=== PATIENT | female | born 1980 | race Two or more races ===

== ENCOUNTER 2017-04-13 23:08 | Emergency (ER) | payer MEDICAID, OTHER ==
[~2017-04-13] VITALS: Ht 170.2 cm; Wt 108.0 kg
[~2017-04-13 23:08] MED LIST: PHEN-329 PO; TAB-TAB PO
[2017-04-13 23:23] VITALS: BP 110/81; PULSE 75; RESP 18; TEMP 98.2; O2SAT 99
[2017-04-14] MEDS ORDERED: SIMV20TA PO (00:02)
[2017-04-14] MEDS ORDERED: LEVO50TA4 PO (00:02)
[2017-04-14 00:03] VITALS: BP 110/87; PULSE 75; RESP 18; TEMP 98.2; O2SAT 99
[2017-04-14] MEDS ORDERED: SODIUM CHLORIDE 0.9% FLUSH 10 ML FLUSH IV FLUSH PRN ×2 (00:15→02:45)
--- NOTE | 2017-04-14 00:48 | PD ---
HPI Chief Complaint: Abdominal Pain Time Seen by Provider: 00:12 Travel History International Travel<30 days: No Contact w/Intl Traveler<30days: No Traveled to known affect area: No History of Present Illness HPI 36 year-old female presents to the emergency department for complaint of abdominal bloating and right upper quadrant abdominal pain. Patient is recently been started on simvastatin for dyslipidemia and they with her oxygen for hypothyroidism. Patient states that she is status post cholecystectomy 12 years ago and has had no issues with gallbladder or post gallbladder GI complaints. Patient denies any weight gain but states she's been having difficulty losing weight. Patient denies any flank pain dysuria frequency urgency hematuria vaginal discharge or abnormal vaginal bleeding. Last menses was one week ago and normal for her; patient denies . Patient's had no fever or chills. Patient's had nausea no vomiting. Patient's had normal bowel movements without diarrhea constipation melena hematochezia. Patient denies any injury or fall. Patient denies chest pain or shortness of breath. Patient's had no recent respiratory illness. Patient rates pain as 7/10 in intensity. [facility] Past Medical History Narrative Medical Dyslipidemia hypothyroidism cholecystectomy no tobacco use; nursing notes reviewed High Cholesterol: Yes Diminished Hearing: No Immunizations Current: No Thyroid Disease: Yes (HYPOTHYROIDISM) Tetanus Vaccination: Unknown Influenza Vaccination: No ?: Not LMP: 03/30/17 : 1 Para: 1 Miscarriage: 0 : 0 Past Surgical History Cholecystectomy: Yes Oral Surgery: Yes (WISDOM) Social History Alcohol Use: No Tobacco Use: No Substance Use: No Allergies-Medications (Allergen,Severity, Reaction): Coded Allergies: Contrast Media (Verified Allergy, Intermediate, 04/14/17) Reported Meds & Prescriptions Reported Meds & Active Scripts Active Zofran Odt (Ondansetron Odt) 4 Mg Tab 4 Mg SL Q6HR PRN Epipen 2-Bon Inj (Epinephrine) 0.3 Mg/0.3 Ml Pfpen 0.3 Mg IM ONCE PRN Medrol Dosepak (Methylprednisolone) 4 Mg Dspk 4 Mg PO DIRECTED Per Pharmacist direction Reported Simvastatin 20 Mg Tab 20 Mg PO DAILY Levothyroxine (Levothyroxine Sodium) 50 Mcg Tab 50 Mcg PO DAILY Review of Systems Except as stated in HPI: all other systems reviewed are Neg General / Constitutional: No: Fever, Chills, Weight Loss Eyes: No: Visual changes HENT: No: Headaches, Sore Throat, Congestion Cardiovascular: No: Chest Pain or Discomfort, Palpitations, Diaphoresis Respiratory: No: Shortness of Breath, Pleuritic Pain Gastrointestinal: Positive: Nausea, Abdominal Pain, No: Vomiting, Diarrhea, Hematemesis, Hematochezia, Constipation, Loss of Appetite Genitourinary: No: Urgency, Frequency, Dysuria, Pelvic Pain, Flank Pain Musculoskeletal: No: Myalgias, Arthralgias Skin: No Rash Neurologic: No: Weakness Psychiatric: No: Anxiety Endocrine: No: Polyuria Hematologic/Lymphatic: No: Lymph Node Enlargement Physical Exam Narrative GENERAL: Well-developed well-nourished female in no acute distress no respiratory distress SKIN: Warm and dry. HEAD: Normocephalic. EYES: No scleral icterus. No injection or drainage. NECK: Supple, trachea midline. No JVD or lymphadenopathy. CARDIOVASCULAR: Regular rate and rhythm without murmurs, gallops, or rubs. RESPIRATORY: Breath sounds equal bilaterally. No accessory muscle use. GASTROINTESTINAL: Abdomen soft, epigastric and right upper quadrant tenderness to palpation without guarding or rebound; no clinical Rodriguez sign, nondistended. MUSCULOSKELETAL: No cyanosis, or edema. BACK: Nontender without obvious deformity. No CVA tenderness. Data Data Last Documented VS Vital Signs Date Time Temp Pulse Resp B/P Pulse Ox O2 Delivery O2 Flow Rate FiO2 04/14/17 03:06 62 16 111/69 99 Room Air 04/14/17 00:03 98.2 Orders Complete Blood Count With Diff (04/14/17 00:12) Comprehensive Metabolic Panel (04/14/17 00:12) Lipase (04/14/17 00:12) Lactic Acid (04/14/17 00:12) Urinalysis - C+S If Indicated (04/14/17 00:12) Ct Abd/Pel W Iv Contrast(Rout) (04/14/17 00:12) Iv Access Insert/Monitor (04/14/17 00:12) Ecg Monitoring (04/14/17 00:12) Oximetry (04/14/17 00:12) Sodium Chloride 0.9% Flush (Ns Flush) (04/14/17 00:15) Electrocardiogram (04/14/17 00:12) Ed Urine Pregnancytest Poc (04/14/17 00:12) Magnesium (Mg) (04/14/17 00:12) Ckmb (Isoenzyme) Profile (04/14/17 00:12) Troponin I (04/14/17 00:12) CKMB (04/14/17 01:40) CKMB% (04/14/17 01:40) Ondansetron Inj (Zofran Inj) (04/14/17 02:15) Hydromorphone Pf Inj (Dilaudid Pf Inj) (04/14/17 02:15) Sodium Chlor 0.9% 1000 Ml Inj (Ns 1000 M (04/14/17 02:15) Diphenhydramine Inj (Benadryl Inj) (04/14/17 02:45) Methylprednisolone So Succ Inj (Solumedr (04/14/17 02:45) Ecg Monitoring (04/14/17 02:43) Iv Access Insert/Monitor (04/14/17 02:43) Oximetry (04/14/17 02:43) Famotidine Inj (Pepcid Inj) (04/14/17 02:45) Sodium Chloride 0.9% Flush (Ns Flush) (04/14/17 02:45) Epinephrine (1:1000) Inj (Adrenalin (1:1 (04/14/17 02:45) Sodium Chlor 0.9% 1000 Ml Inj (Ns 1000 M (04/14/17 02:45) Iohexol 350 Inj (Omnipaque 350 Inj) (04/14/17 02:46) Labs Laboratory Tests Test 04/14/17 04/14/17 01:00 01:40 White Blood Count 7.6 TH/MM3 Red Blood Count 4.23 MIL/MM3 Hemoglobin 12.4 GM/DL Hematocrit 37.4 % Mean Corpuscular Volume 88.3 FL Mean Corpuscular Hemoglobin 29.4 PG Mean Corpuscular Hemoglobin 33.3 % Concent Red Cell Distribution Width 15.4 % Platelet Count 226 TH/MM3 Mean Platelet Volume 8.4 FL Neutrophils (%) (Auto) 61.3 % Lymphocytes (%) (Auto) 29.9 % Monocytes (%) (Auto) 6.7 % Eosinophils (%) (Auto) 1.2 % Basophils (%) (Auto) 0.9 % Neutrophils # (Auto) 4.6 TH/MM3 Lymphocytes # (Auto) 2.3 TH/MM3 Monocytes # (Auto) 0.5 TH/MM3 Eosinophils # (Auto) 0.1 TH/MM3 Basophils # (Auto) 0.1 TH/MM3 CBC Comment DIFF FINAL Differential Comment Urine Color YELLOW Urine Turbidity CLEAR Urine pH 6.0 Urine Specific [place] 1.009 Urine Protein NEG mg/dL Urine Glucose (UA) NEG mg/dL Urine Ketones NEG mg/dL Urine Occult Blood SMALL Urine Nitrite NEG Urine Bilirubin NEG Urine Leukocyte Esterase NEG Urine RBC 3-5 /hpf Urine WBC 0-2 /hpf Urine Squamous Epithelial 0-5 /hpf Cells Urine Bacteria NONE /hpf Microscopic Urinalysis Comment CULT NOT INDICATED Lactic Acid Level 0.9 mmol/L Sodium Level 141 MEQ/L Potassium Level 3.5 MEQ/L Chloride Level 107 MEQ/L Carbon Dioxide Level 26.4 MEQ/L Anion Gap 8 MEQ/L Blood Urea Nitrogen 11 MG/DL Creatinine 1.00 MG/DL Estimat Glomerular Filtration 62 ML/MIN Rate Random Glucose 94 MG/DL Calcium Level 8.6 MG/DL Magnesium Level 2.2 MG/DL Total Bilirubin 0.5 MG/DL Aspartate Amino Transf 36 U/L (AST/SGOT) Alanine Aminotransferase 47 U/L (ALT/SGPT) Alkaline Phosphatase 78 U/L Total Creatine Kinase 537 U/L Creatine Kinase MB 4.2 NG/ML Creatine Kinase MB % 0.8 % Troponin I LESS THAN 0.02 NG/ML Total Protein 7.7 GM/DL Albumin 3.9 GM/DL Lipase 309 U/L [facility] Medical Decision Making Medical Screen Exam Complete: Yes Emergency Medical Condition: Yes Medical Record Reviewed: Yes Interpretation(s) EKG normal sinus rhythm rate 64 age-indeterminate QRS inferiorly no acute ST elevation or injury pattern change noted [id number] hCG: Negative Lactic acid: 0.9, not elevated Troponin I less than 0.02, not elevated CK total 537, elevated CK-MB and MB percent pending Urinalysis: Normal range CT abd/pel with IV contrast: FINDINGS: Mild hepatic steatosis. Cholecystectomy clips are noted. The spleen, pancreas, adrenal glands, bilateral kidneys are unremarkable. There is a punctate nonobstructing left upper pole renal calculus. Appendix is normal. The urinary bladder, uterus and adnexa are unremarkable. No evidence of bowel obstruction. Stomach, small and large bowel are normal. No adenopathy or aneurysm. Lung bases are clear. Osseous structures are intact. CONCLUSION: 1. Mild hepatic steatosis. 2. Nonobstructing left renal calculus. 3. No inflammatory changes are identified in the abdomen or pelvis. Brandon Dubose MD on April 14, 2017 at 2:55 Board Certified Radiologist. This report was verified electronically. Differential Diagnosis Abdominal pain, abdominal distention, choledocholithiasis, pancreatitis, gastritis, bowel obstruction, renal colic, ascites, hepatitis Narrative Course IV access obtained specimens collected and sent for resulting EKG performed which reveals no acute ST segment elevation or injury pattern: Patient offered pain medication but declines at this time CBC is automated differential values in normal range; [id number] hCG negative At 2 AM patient now requesting pain medication that she had previously declined ; at this time patient will be offered Zofran 4 mg IV and Dilaudid 0.5 mg IV along with 1 L normal saline bolus CT abdomen and pelvis pending At 2:46 PM a.m. patient returns from CT with urticarial reaction after receiving injection of IV contrast dye patient notes urticaria to face chest back and arms also notes a strange sensation in her throat but no stridor or hoarseness no wheezing no shortness of breath no chest pain no near-syncope or syncope no nausea or vomiting. No prior history of any known medication allergies or allergies. Patient administered epinephrine 1-1000 0.3 mL IM, Solu -Medrol 125 mg IV, Benadryl 25 mg IV, Pepcid 20 mg IV, and 1 L normal saline bolus; patient continued on monitor technician. (Patient had not yet received ordered dilaudid or zofran injections prior to onset of acute urticarial allergic reaction after receiving IV contrast dye and have remained non- administered). CT abdomen and pelvis resulted per reading radiologist no acute abnormality identified evidence of previous cholecystectomy, mild hepatic steatosis, nonobstructing punctate left nephrolithiasis, no acute intra-abdominal or pelvic inflammatory process. At 3:55 AM acute allergic urticarial reaction has resolved and patient does not have any residual urticaria. Patient given an additional Benadryl 25 mg IV. Patient is stable for outpatient management. Patient provided a prescription for EpiPen, Medrol Dosepak and as needed Zofran; as well as instructions to take Benadryl every 4-6 hours over the next 7 days to blunt any residual allergic reaction or for hives or urticaria and Zantac 150 twice daily for the next 7 days again to blunt any residual allergic reaction for hives or urticaria. Patient and spouse at bedside acknowledge diagnosis newly diagnosed allergic reaction to contrast and recommendations for follow-up with primary care provider Diagnosis Primary Impression: Abdominal pain Qualified Code: R10.13 - Epigastric pain Additional Impressions: Acute allergic reaction Qualified Code: T78.40XA - Acute allergic reaction, initial encounter Allergic reaction to contrast dye Qualified Code: T50.8X5A - Allergic reaction to contrast dye, initial encounter Hepatic steatosis Referrals: Primary Care Physician call for appointment Patient Instructions: General Instructions Additional Instructions: Follow clear liquid diet for next 12-24 hours; advance to bland/Ajay diet and bland then regular diet Complete steroid taper as prescribed take Zantac 150 twice daily for the next 7 days Take Benadryl 25-50 mg every 4-6 hours as needed for itching or hives for the next 7 days Increase fluid hydration Be aware you now have a hive allergic reaction to contrast Return to the emergency department for any concerns or change in condition Takes Zofran as prescribed as needed for nausea and/or vomiting Use EpiPen as prescribed as needed for hives related acute allergic reaction Med/Other Pt SpecificInfo: Prescription(s) given Scripts Ondansetron Odt (Zofran Odt)4 Mg Tab4 Mg SL Q6HR PRN (Nausea/Vomiting) #10 TAB Ref 0 Prov:Julia Zamudio MD 04/14/17 Epinephrine Inj (Epipen 2-Bon Inj)0.3 Mg/0.3 Ml Pfpen0.3 Mg IM ONCE PRN ( ALLERGIC REACTION) #1 PACK Ref 0 Prov:Julia Zamudio MD 04/14/17 Methylprednisolone Dosepak (Medrol Dosepak)4 Mg Dspk4 Mg PO DIRECTED #1 DSPK Ref 0 Per Pharmacist direction Prov:Julia Zamudio MD 04/14/17 Disposition: DISCHARGE HOME Condition: Stable Julia Zamudio MD Apr 14, 2017 00:48
[2017-04-14 01:23] LABS: AUTOMATED NEUTROPHIL # 4.6 TH/MM3 (1.8-7.7); BASOPHIL # 0.1 TH/MM3 (0-0.2); BASOPHIL % 0.9 % (0.0-2.0); EOSINOPHIL # 0.1 TH/MM3 (0-0.4); EOSINOPHIL % 1.2 % (0.0-4.0); HEMATOCRIT 37.4 % (35.0-46.0); HEMO FLAGS DIFF FINAL; LYMPH % 29.9 % (9.0-44.0); LYMPHOCYTE # 2.3 TH/MM3 (1.0-4.8); MEAN CELL VOLUME 88.3 FL (80.0-100.0); MEAN CORPUSCULAR HEMOGLOBIN 29.4 PG (27.0-34.0); MEAN CORPUSCULAR HGB CONC 33.3 % (32.0-36.0); MONO % 6.7 % (0.0-8.0); NEUT % 61.3 % (16.0-70.0); PLATELET COUNT 226 TH/MM3 (150-450); RED BLOOD COUNT 4.23 MIL/MM3 (4.00-5.30); RED CELL DISTRIBUTION WIDTH 15.4 % (11.6-17.2); WHITE BLOOD COUNT 7.6 TH/MM3 (4.0-11.0)
[2017-04-14 01:24] LABS: BLOOD, URINE SMALL (NEG); GLUCOSE,URINE NEG (NEG); KETONE, URINE NEG (NEG); NITRITE,URINE NEG (NEG)
[2017-04-14 01:54] LABS: CHLORIDE 107 MEQ/L (98-107); POTASSIUM 3.5 MEQ/L (3.5-5.1); SODIUM (NA) 141 MEQ/L (136-145)
[2017-04-14 01:58] LABS: ANION GAP 8 MEQ/L (5-15); BICARBONATE 26.4 MEQ/L (21.0-32.0)
[2017-04-14 01:59] LABS: BLOOD UREA NITROGEN 11 MG/DL (7-18); MAGNESIUM 2.2 MG/DL (1.5-2.5)
[2017-04-14 02:01] LABS: COMMENT (UR) CULT NOT INDICATED; CULTURE IF INDICATED CULT NOT INDICATED; SQUAMOUS EPITHELIAL CELL URINE 0-5 /hpf (0-5); URINE COLOR YELLOW (YELLW/STRAW); WBC, URINE 0-2 /hpf (0-5)
[2017-04-14 02:01] LABS: ALT (GPT) 47 U/L (10-53); AST (GOT) 36 U/L (15-37); GLOMERULAR FILTRATION RATE 62 ML/MIN (>89)
[2017-04-14 02:03] LABS: TOTAL BILIRUBIN ADULT 0.5 MG/DL (0.2-1.0)
[2017-04-14 02:04] LABS: ALKALINE PHOSPHATASE 78 U/L (45-117); CREATINE KINASE 537 U/L (26-192)
[2017-04-14] MEDS ORDERED: HYDROmorphone HCL PF 1 MG/ML VIAL IV PUSH ONE (02:15)
[2017-04-14] MEDS ORDERED: SODIUM CHLOR 0.9% 1000 ML INJ 1,000 ML IV ONE ×2 (02:15→02:45)
[2017-04-14] MEDS ORDERED: ONDANSETRON HCL 4 MG/2 ML VIAL IV PUSH ONE (02:15)
[2017-04-14 02:16] LABS: CKMB 4.2 NG/ML (0.5-3.6)
[2017-04-14] MEDS ORDERED: FAMOTIDINE 20 MG/2 ML VIAL IV PUSH ONE (02:45)
[2017-04-14] MEDS ORDERED: diphenhydrAMINE HCL 50 MG/ML VIAL IV PUSH ONE ×2 (02:45→04:00)
[2017-04-14] MEDS ORDERED: methylPREDNISolone SOD SUCC 125 MG/2 ML VIAL IV PUSH ONE (02:45)
[2017-04-14] MEDS ORDERED: EPINEPHrine HCL (1:1000) 1 MG/ML VIAL IM ONE (02:45)
[2017-04-14] MEDS ORDERED: IOHEXOL 350 MG/ML 10 ML VIAL (for RAD DIAG) IV ONE (02:46)
--- NOTE | 2017-04-14 02:58 | RADRPT ---
EXAM DATE/TIME: 04/14/2017 02:26 [place] COMPARISON: No previous studies available for comparison. INDICATIONS : Right upper quadrant pain, bloating, nausea. IV CONTRAST: 95 cc Omnipaque 350 (iohexol) IV ORAL CONTRAST: No oral contrast ingested. RADIATION DOSE: 20.21 CTDIvol (mGy) MEDICAL HISTORY : Hypothyroidism. SURGICAL HISTORY : Cholecystectomy. ENCOUNTER: Initial ACUITY: 1 day PAIN SCALE: 8/10 LOCATION: Right flank TECHNIQUE: Volumetric scanning of the abdomen and pelvis was performed. Using automated exposure control and ad justment of the mA and/or kV according to patient size, radiation dose was kept as low as reasonably achievable to obtain optimal diagnostic quality images. DICOM format image data is available electro nically for review and comparison. FINDINGS: Mild hepatic steatosis. Cholecystectomy clips are noted. The spleen, pancreas, adrenal glands, bilate ral kidneys are unremarkable. There is a punctate nonobstructing left upper pole renal calculus. Appe ndix is normal. The urinary bladder, uterus and adnexa are unremarkable. No evidence of bowel obstruc tion. Stomach, small and large bowel are normal. No adenopathy or aneurysm. Lung bases are clear. Oss eous structures are intact. CONCLUSION: 1. Mild hepatic steatosis. 2. Nonobstructing left renal calculus. 3. No inflammatory changes are identified in the abdomen or pelvis. Brandon Dubose MD on April 14, 2017 at 2:55 Board Certified Radiologist. This report was verified electronically.
[2017-04-14 03:06] VITALS: BP 111/69; PULSE 62; RESP 16; O2SAT 99
[2017-04-14] MEDS ORDERED: EPIP0.3I IM (03:51)
[2017-04-14] MEDS ORDERED: MEDR4PAK PO (03:51)
[2017-04-14] MEDS ORDERED: ZOFR4TAB3 SL (03:52)
[2017-04-14 04:14] VITALS: BP 113/61
--- NOTE | 2017-04-14 13:03 | EKG ---
Date Performed: 04/14/2017 Time Performed: 00:35:08 PTAGE: 36 years EKG: Sinus rhythm LOW QRS VOLTAGE IN EXTREMITY LEADS INFERIOR MYOCARDIAL INFARCTION Diffuse T wave changes are nonspec ific, but consider ischemia ABNORMAL ECG NO PREVIOUS TRACING DOCTOR: David Awad Interpretating Date/Time 04/14/2017 13:02:14
== END 2017-04-14 04:24 | disposition home or self-care (01) ==
LOC: PHED 23:08
DX: R10.13 Epigastric pain (principal); T78.40XA Allergy, unspecified, initial encounter; T50.8X5A Adverse effect of diagnostic agents, initial encounter; K76.0 Fatty (change of) liver, not elsewhere classified; N20.0 Calculus of kidney; R11.0 Nausea; E03.9 Hypothyroidism, unspecified; E78.00 Pure hypercholesterolemia, unspecified; Z90.49 Acquired absence of other specified parts of digestive tract
CPT/HCPCS: 74177; 80053; 81001; 82550; 82552; 83605; 83690; 83735; 84484; 84703; 85025; 93005; 96361; 96372; 96374; 96375; 96376; 99285; J0171; J1200; J2930; J7030; Q9967